=== PATIENT | male | born 1990 | race Caucasian/White ===

== ENCOUNTER 2016-08-21 19:47 | Emergency (ER) | payer BC ==
[~2016-08-21] VITALS: Ht 144.8 cm; Wt 57.0 kg
[2016-08-21 23:35] VITALS: BP 125/75
== END 2016-08-22 | disposition home or self-care (01) ==
LOC: ER 23:32
DX: S20.362A Insect bite (nonvenomous) of left front wall of thorax, initial encounter (principal); L02.414 Cutaneous abscess of left upper limb; F12.10 Cannabis abuse, uncomplicated; Y93.89 Activity, other specified; Y99.8 Other external cause status; Y92.89 Other specified places as the place of occurrence of the external cause
CPT/HCPCS: 99281; Z7610

== ENCOUNTER 2017-10-28 19:07 | Emergency (ER) | payer BC ==
[~2017-10-28] VITALS: Ht 149.9 cm; Wt 57.0 kg
[2017-10-28] MEDS ORDERED: KETOROLAC 60MG/2ML VIAL IM STA (20:36)
[2017-10-28 22:30] VITALS: BP 119/54
== END 2017-10-29 03:40 | disposition home or self-care (01) ==
LOC: ER 10-29 03:34
DX: M25.561 Pain in right knee (principal); M79.661 Pain in right lower leg; M54.5 Low back pain
CPT/HCPCS: 72100; 73562; 93971; 96372; 99284; J1885; Z7610

== ENCOUNTER 2018-11-10 20:34 | Emergency (ER) | payer BC ==
[~2018-11-10] VITALS: Ht 149.9 cm; Wt 52.0 kg
[2018-11-10 21:15] VITALS: BP 129/41
[2018-11-10 23:11] LABS: CLARITY URINE CLOUDY (CLEAR); COLOR URINE YELLOW (YELLOW); KETONES URINE NEGATIVE (NEGATIVE); LEUKOCYTE ESTERASE URINE NEGATIVE (NEGATIVE); NITRITE URINE NEGATIVE (NEGATIVE); OCCULT BLOOD URINE NEGATIVE (NEGATIVE); PROTEIN URINE NEGATIVE (NEGATIVE); SPECIFIC GRAVITY URINE 1.025 (1.005-1.030)
== END 2018-11-11 00:01 | disposition home or self-care (01) ==
LOC: ER 20:34
DX: R30.0 Dysuria (principal); N48.89 Other specified disorders of penis
CPT/HCPCS: 81003; 99283